=== PATIENT | male | born 1990 | race Caucasian/White ===

== ENCOUNTER 2019-06-18 17:44 | Emergency (ER) | payer MEDICAID ==
[~2019-06-18] VITALS: Ht 162.6 cm; Wt 56.7 kg
[2019-06-18 17:57] VITALS: Ht 162.6 cm; Wt 56.7 kg
[2019-06-18 18:45] LABS: BASOPHIL % 0.3 % (0-2); PLATELET COUNT 285 x10^3mcL (130-400); RED CELL DISTRIBUTION WIDTH 13.9 % (11.5-14.5)
[2019-06-18 18:51] LABS: ALKALINE PHOSPHATASE 219 U/L (46-116); ALT/SGPT 21 U/L (16-63); AST/SGOT 8 U/L (15-37); BILIRUBIN TOTAL 0.2 mg/dL (0.20-1.00); CALCIUM 8.4 mg/dL (8.5-10.1); CARBON DIOXIDE 28.4 mmol/L (21-32); CHLORIDE SERUM 101 mmol/L (98-107); CREATININE SERUM 0.6 mg/dL (0.7-1.3); GFR1 > 60 mL/min; POTASSIUM SERUM 4.1 mmol/L (3.5-5.1); SODIUM SERUM 137 mmol/L (136-145); TOTAL PROTEIN, SERUM 6.7 g/dL (6.4-8.2)
[2019-06-18 18:55] LABS: ALBUMIN 3.1 g/dL (3.4-5.0)
[2019-06-18 18:57] LABS: GLUCOSE SERUM 482 mg/dL (74-106)
[2019-06-18 19:05] LABS: microscopic required? NO
[2019-06-18 19:24] LABS: UA SPECIFIC GRAVITY <=1.005 (1.005-1.035); urine erythrocyte NEGATIVE (NEGATIVE)
[2019-06-18 21:15] VITALS: BP 111/73
== END 2019-06-18 21:15 | disposition home or self-care (01) ==
LOC: ED 17:44
PROVIDERS: Emergency Medicine
DX: E11.65 Type 2 diabetes mellitus with hyperglycemia (principal); R10.817 Generalized abdominal tenderness
CPT/HCPCS: 82962; J1815